=== PATIENT | male | born 1980 | race Caucasian/White ===

== ENCOUNTER 2022-06-27 20:54 | Emergency (ER) | payer SELFPAY ==
[~2022-06-27] VITALS: Ht 172.7 cm; Wt 80.0 kg
[2022-06-27 20:59] VITALS: BP 119/76
[2022-06-27 21:37] LABS: CHLORIDE 102 mEq/L (98-107)
[2022-06-27 21:45] LABS: BASOPHILS % 0.5 % (0.0-2.0); EOSINOPHILS % 2.7 % (0.0-5.0); HEMOGLOBIN. 14.4 g/dL (14.0-18.0); LYMPHOCYTES % 21.7 % (20.0-50.0); MEAN CORPUSCULAR HEMOGLOBIN 28.3 pg (28.0-32.0); MEAN CORPUSCULAR VOLUME 84.5 fL (80.0-94.0); MONOCYTES % 7.9 % (2.0-8.0); NEUTROPHILS % 67.2 % (40.0-76.0); PLATELET 296 x1000/uL (130-400); RED BLOOD CELL COUNT 5.09 mill/uL (4.7-6.1); RED CELL DISTRIBUTION WIDTH 13.7 % (11.6-14.6)
[2022-06-27] MEDS ORDERED: NITROGLYCERIN 0.4MG TABLET SL SL PRN (22:15)
[2022-06-27] MEDS ORDERED: ASPIRIN 81MG TABLET PO ONE (22:15)
== END 2022-06-27 23:50 | disposition home or self-care (01) ==
LOC: ER 20:54
DX: R07.89 Other chest pain (principal); J45.909 Unspecified asthma, uncomplicated
CPT/HCPCS: 36415; 71045; 80053; 84484; 85025; 85379; 93005; 99285; Z7610